=== PATIENT | male | born 1950 | race Caucasian/White ===

== ENCOUNTER 2020-12-21 14:23 | Observation (INO) ==
[2020-12-21] MEDS ORDERED: Aspirin 81 MG TAB.CHEW PO ONE (15:15)
[2020-12-21 15:22] LABS: Basophils % 0.8 %; Eosinophils # 0.2 K/mcL (0.0-0.6); Eosinophils % 3.7 %; Hemoglobin 14.2 g/dL (12.9-16.9); Immature Granulocytes % 0.4 % (0-4); Lymphocytes # 1.6 K/mcL (0.6-4.6); Lymphocytes % 30.8 %; Mean Corpuscular HGB Conc 33.8 g/dL (31.6-35.5); Mean Corpuscular Hemoglobin 29.2 pg (28.0-33.3); Mean Corpuscular Volume 86.4 fL (83.0-100.0); Mean Platelet Volume 9.1 fL (9.4-12.4); Monocytes # 0.5 K/mcL (0.0-1.3); Monocytes % 10.6 %; Neutrophils # 2.7 K/mcL (1.6-8.9); Platelet Count 221 K/mcL (140-400); Red Blood Count 4.86 M/mcL (4.19-5.50); Red Cell Distribution Width 12.7 % (11.5-14.5); Segmented Neutrophils % 53.7 %; White Blood Count 5.1 K/mcL (4.3-11.1)
[2020-12-21] MEDS ORDERED: *HR* Heparin 5,000 UNIT/ML VIAL IVP PRN ×2 (15:37)
[2020-12-21] MEDS ORDERED: *HR* Heparin 5,000 UNIT/ML VIAL IVP ONE (15:37)
[2020-12-21 15:41] LABS: BUN/Creatinine Ratio 16 (6-26); Blood Urea Nitrogen 16 mg/dL (8-23); Calcium 9.8 mg/dL (8.6-10.3); Carbon Dioxide 24 mEq/L (23-29); Chloride 108 mEq/L (98-107); Glucose 100 mg/dL (70-105); Osmolality,Calculated 287 (280-300); Potassium 3.4 mEq/L (3.5-5.1); Sodium 138 mEq/L (136-145); eGFR For African Americans > 60 (> 60); eGFR For Non-African Americans > 60 (> 60)
[2020-12-21 15:42] LABS: Troponin I < 0.03 ng/mL (< 0.04)
[2020-12-21] MEDS ORDERED: Heparin 25,000UNIT/250ML 1/2NS 25,000 UNIT/250 ML IV.SOLN IVC SCH (15:45)
[2020-12-21 16:23] LABS: Heparin anti-factor XA UFH < 0.04 IU/mL (0.30-0.70)
[2020-12-21 16:24] LABS: INR 1.1; Prothrombin Time 12.5 Seconds (9.4-12.1)
[2020-12-21 16:26] LABS: Activated Partial Thrombo Time 28.5 Seconds (26.0-36.0)
[2020-12-21] MEDS ORDERED: Morphine Sulfate 2 MG/ML SYRINGE IVP STA (16:27)
[2020-12-21 16:31] LABS: Albumin 4.5 g/dL (3.5-5.7); Albumin/Globulin Ratio 1.7 (1.1-2.2); Bilirubin,Direct 0.2 mg/dL (0.0-0.2); Bilirubin,Indirect 0.7 mg/dL (0.0-1.0); Bilirubin,Total 0.9 mg/dL (0.3-1.0); Globulin 2.6 g/dL (2.4-3.5); Total Protein 7.1 g/dL (6.4-8.9)
[2020-12-21] MEDS ORDERED: Naloxone 0.4 MG/ML INJ IVP PRN (17:25)
[2020-12-21] MEDS ORDERED: Ondansetron ODT 4 MG TAB.RAPDIS SL PRN (17:25)
[2020-12-21] MEDS ORDERED: Melatonin 3 MG TABLET PO PRN (17:25)
[2020-12-21] MEDS ORDERED: MOM Conc 10 ML UD.LIQ PO PRN (17:25)
[2020-12-21] MEDS ORDERED: Mag Hydrox/Al Hydrox/Simeth 30 ML UDC PO PRN (17:25)
[2020-12-21] MEDS ORDERED: Isosorbide MONOnitrate (24 HR) 30 MG TAB.ER.24H PO SCH (17:30)
[2020-12-21] MEDS ORDERED: 0.9 % Sodium Chloride 1,000 ML ONE (20:38)
[2020-12-21] MEDS ORDERED: Isovue-370 500 ML BOTTLE IVP ONE (20:45)
[2020-12-21 21:42] LABS: Hematocrit 33.2 % (37.5-50.1)
[2020-12-21 21:43] LABS: Hemoglobin 11.5 g/dL (12.9-16.9)
[2020-12-22 03:11] LABS: Hematocrit 34.3 % (37.5-50.1); Hemoglobin 11.6 g/dL (12.9-16.9); Mean Corpuscular HGB Conc 33.8 g/dL (31.6-35.5); Mean Corpuscular Hemoglobin 29.4 pg (28.0-33.3); Mean Corpuscular Volume 86.8 fL (83.0-100.0); Mean Platelet Volume 9.1 fL (9.4-12.4); Platelet Count 181 K/mcL (140-400); Red Blood Count 3.95 M/mcL (4.19-5.50); Red Cell Distribution Width 12.9 % (11.5-14.5); White Blood Count 5.7 K/mcL (4.3-11.1)
[2020-12-22 03:39] LABS: Alanine Aminotransferase 9 Units/L (7-52); Albumin 3.7 g/dL (3.5-5.7); Albumin/Globulin Ratio 1.7 (1.1-2.2); Alkaline Phosphatase 54 Units/L (34-104); Aspartate Amino Transferase 12 Units/L (13-39); BUN/Creatinine Ratio 14 (6-26); Bilirubin,Total 0.6 mg/dL (0.3-1.0); Blood Urea Nitrogen 18 mg/dL (8-23); Calcium 8.4 mg/dL (8.6-10.3); Carbon Dioxide 22 mEq/L (23-29); Chloride 110 mEq/L (98-107); Chol/HDL Ratio 4.3 (0-4.9); Cholesterol 112 mg/dL (< 200); Globulin 2.2 g/dL (2.4-3.5); Glucose 118 mg/dL (70-105); HDL Cholesterol 26 mg/dL (40-59); LDL Cholesterol,Calculated 47 mg/dL (< 100); Osmolality,Calculated 293 (280-300); Potassium 3.8 mEq/L (3.5-5.1); Sodium 140 mEq/L (136-145); Total Protein 5.9 g/dL (6.4-8.9); Triglycerides 193 mg/dL (< 150); eGFR For African Americans > 60 (> 60); eGFR For Non-African Americans 55 (> 60)
[2020-12-22] MEDS ORDERED: *HR* Enoxaparin 40 MG/0.4 ML SYRINGE SQ SCH (06:00)
[2020-12-22] MEDS: Aspirin 81 MG TAB.CHEW PO SCH (08:20)
[2020-12-22] MEDS ORDERED: lisinopriL 20 MG TABLET PO SCH (09:00)
[2020-12-22] MEDS ORDERED: Heparin 1,000 UNITS/500 mL 500 ML ONE (14:31)
[2020-12-22] MEDS ORDERED: *HR* Heparin 10,000 UNIT/10 ML VIAL ONE (14:31)
[2020-12-22] MEDS ORDERED: ISOVUE-370 200 ML INFUS..BTL ONE (14:31)
[2020-12-22] MEDS ORDERED: 0.9 % Sodium Chloride 1,000 ML ONE (14:32)
[2020-12-22] MEDS ORDERED: Nitroglycerin 1,000 MCG/5 ML VIAL IV ONE (14:32)
[2020-12-22] MEDS: Colchicine 0.6 MG TABLET PO SCH (23:11)
[2020-12-23 01:56] LABS: Basophils % 0.5 %; Eosinophils # 0.3 K/mcL (0.0-0.6); Eosinophils % 4.2 %; Hematocrit 35.6 % (37.5-50.1); Immature Granulocytes % 0.5 % (0-4); Lymphocytes % 30.9 %; Mean Corpuscular HGB Conc 33.7 g/dL (31.6-35.5); Mean Corpuscular Hemoglobin 29.3 pg (28.0-33.3); Mean Platelet Volume 9.2 fL (9.4-12.4); Monocytes # 0.7 K/mcL (0.0-1.3); Monocytes % 11.5 %; Neutrophils # 3.4 K/mcL (1.6-8.9); Platelet Count 187 K/mcL (140-400); Red Blood Count 4.09 M/mcL (4.19-5.50); Segmented Neutrophils % 52.4 %; White Blood Count 6.4 K/mcL (4.3-11.1)
[2020-12-23 02:10] LABS: BUN/Creatinine Ratio 17 (6-26); Blood Urea Nitrogen 15 mg/dL (8-23); Calcium 8.6 mg/dL (8.6-10.3); Carbon Dioxide 20 mEq/L (23-29); Chloride 109 mEq/L (98-107); Glucose 96 mg/dL (70-105); Magnesium 1.9 mg/dL (1.6-2.6); Osmolality,Calculated 297 (280-300); Potassium 3.4 mEq/L (3.5-5.1); Sodium 143 mEq/L (136-145); eGFR For African Americans > 60 (> 60); eGFR For Non-African Americans > 60 (> 60)
[2020-12-23] MEDS: Colchicine 0.6 MG TABLET PO SCH (09:48)
[2020-12-23] MEDS: Aspirin 81 MG TAB.CHEW PO SCH (09:48)
[2020-12-23] MEDS ORDERED: Albuterol 2.5 MG/3 ML NEBULIZER ONE (09:58)
[2020-12-23 11:00] VITALS: BP 131/87
== END 2020-12-23 11:57 | disposition home or self-care (01) ==
LOC: EMEROOARM 14:23 → CDU 14:23 → SUATTDRO 17:49 → CDU 18:31
PROVIDERS: ADMIT Internal Medicine; ATTEND Student in an Organized Health Care Education/Training Program